=== PATIENT | female | born 1960 | race Two or more races ===

== ENCOUNTER 2016-12-19 10:42 | Emergency (ER) | payer BC ==
[2016-12-19] MEDS ORDERED: IBUPROFEN 800 MG TABLET PO ONE (10:51)
--- NOTE | 2016-12-19 10:51 | ER Document Report ---
ED Medical Screen (RME) - General Stated Complaint: BACK PAIN Time seen by provider: 10:48 Mode of Arrival: Ambulatory Information source: Patient Notes: 56-year-old female presents to ED for low back pain and disc problems. She states she has 5 bad disc in her back and has been taken Neurontin for this. She states this morning she couldn't get up from bed. Says she did not fall or have any accident that she must of overexerted herself and her back became much worse yesterday. Last menstrual period 12/15/2016 - HPI Onset: Other - Chronic Onset/Duration: Gradual Quality of pain: Sharp, Other - Numbness and tingling in hands and feet and legs Severity: Severe Pain Level: 5 Associated Symptoms: Other - Chronic numbness and tingling of hands and feet chronic back problems states is much worse cannot hardly get up and down Exacerbated by: Supine, Sitting, Movement, Walking Relieved by: Denies Similar symptoms previously: Yes Recently seen / treated by doctor: No - Related Data Smoking: Non-smoker Frequency of alcohol use: None Drug Abuse: None Physical Exam - Vital signs Vitals: Temp Pulse Resp BP Pulse Ox 98.2 F 93 18 113/80 100 12/19/16 10:47 12/19/16 10:47 12/19/16 10:47 12/19/16 10:47 12/19/16 10:47 Course - Vital Signs Vital signs: Temp Pulse Resp BP Pulse Ox 98.2 F 93 18 113/80 100 12/19/16 10:47 12/19/16 10:47 12/19/16 10:47 12/19/16 10:47 12/19/16 10:47
--- NOTE | 2016-12-19 11:39 | ER Document Report ---
ED General - General Chief Complaint: Low Back Pain Stated Complaint: BACK PAIN Time seen by provider: 11:34 Mode of Arrival: Ambulatory Information source: Patient Notes: 56-year-old female states she has had discomfort in her low back in the midline reading down both legs beginning last night a much worse this morning. Patient reports she's had MRI many years ago that showed multiple bad disks in her low back recently moved here from [place] and has not established care with anyone yet. She reports having been seen in urgent care and given a referral to neurology that she hasn't yet made. She reports she has plenty of Neurontin at home but nothing else to take specifically for back pain and says this is the worst been in many years. For sensation of tingling the soles of both feet and radicular pain shooting down to the right big toe and mild discomfort in the left posterior thigh. She denies fall or recent injury. He reports being in her normal state of health otherwise recently. Denies any incontinence or saddle anesthesia. Physical Exam: General: Alert, appears well. HEENT: Normocephalic. Atraumatic. PERRLA. Extraocular movements intact. Oropharynx clear. Neck: Supple. Non-tender. No JVD Respiratory: No respiratory distress. Clear and equal breath sounds bilaterally. Cardiovascular: Regular rate and rhythm. Abdominal: Normal Inspection. Soft, non-tender. No distension. Normal Bowel Sounds. Back: Discomfort in the midline lumbar spine. Mild discomfort with palpation in the lower lumbar area laterally bilaterally no SI tenderness. No erythema warmth or swelling. Extremities: Moves all four extremities. ROSEWALL 2+ pulses of cyanosis no edema no Homans sign. Straight leg raise on the left is possible and produces pain in the left posterior thigh. Straight leg raise on the right is limited to flexion at the knee to about 20 and produces pain shooting down to the right big toe. Toes are downgoing bilaterally patellar reflexes are 1+ and equal bilaterally Neurological: Speech clear mentation normal she reports decreased light touch sensation of the soles of both feet but motor function is intact in both lower extremities Psychological: Normal affect. Normal Mood. Skin: Warm. Dry. Normal color. TRAVEL OUTSIDE OF THE [place] IN LAST 30 DAYS: No - Related Data Allergies/Adverse Reactions: sumatriptan [From Imitrex] Allergy (Verified 12/19/16 10:48) Past Medical History - General Information source: Patient - Social History Smoking Status: Never Smoker Chew tobacco use (# tins/day): No Frequency of alcohol use: None Drug Abuse: None Family History: Reviewed & Not Pertinent Patient has suicidal ideation: No Patient has homicidal ideation: No Renal/ Medical History: Denies: Hx Peritoneal Dialysis Past Surgical History: Reports: Hx Tubal Ligation Review of Systems - Review of Systems Constitutional: denies: Chills, Fever EENT: denies: Ear pain, Sinus discharge Cardiovascular: denies: Chest pain, Dyspnea Respiratory: denies: Cough, Short of breath Gastrointestinal: denies: Abdominal pain, Diarrhea, Nausea, Vomiting Genitourinary: denies: Burning, Dysuria Female Genitourinary: Last menstrual period - Just finished Musculoskeletal: See HPI Hematologic/Lymphatic: denies: Swollen glands Neurological/Psychological: See HPI Physical Exam - Vital signs Vitals: Temp Pulse Resp BP Pulse Ox 98.2 F 93 18 113/80 100 12/19/16 10:47 12/19/16 10:47 12/19/16 10:47 12/19/16 10:47 12/19/16 10:47 Course - Re-evaluation Re-evalutation: 12/19/16 11:38 Patient has visitation consistent with acute exacerbation of chronic lumbar disc disease. She or has a rotten home and will provide prescriptions for tramadol and Medrol Dosepak along with a primary care physician referral and she does not yet have one of those locally. - Vital Signs Vital signs: Temp Pulse Resp BP Pulse Ox 98.2 F 93 18 113/80 100 12/19/16 10:47 12/19/16 10:47 12/19/16 10:47 12/19/16 10:47 12/19/16 10:47 Discharge - Discharge Clinical Impression: Back pain Qualifiers: Back pain location: low back pain Chronicity: acute Back pain laterality: bilateral Sciatica presence: with sciatica Sciatica laterality: bilateral sciatica Qualified Code(s): M54.42 - Lumbago with sciatica, left side; M54.41 - Lumbago with sciatica, right side Condition: Stable Disposition: HOME, SELF-CARE Instructions: Low Back Pain ([facility]) Prescriptions: Methylprednisolone [Medrol Dosepack (4 mg/Tab) 21 Tab/Dosepak] 4 mg PO ASDIR PRN #21 tab.ds.pk PRN Reason: Tramadol HCl 50 mg PO BID PRN #20 tablet PRN Reason: For Pain Referrals: LONDON SANCHES MD [ACTIVE STAFF] - Follow up as needed
[2016-12-19 12:00] VITALS: BP 102/60
== END 2016-12-19 11:48 | disposition home or self-care (01) ==
LOC: ER 10:42
DX: M54.42 Lumbago with sciatica, left side (principal); M54.41 Lumbago with sciatica, right side; M54.5 Low back pain
CPT/HCPCS: 99283